=== PATIENT | female | born 1935 | race Caucasian/White ===

== ENCOUNTER → 2016-10-28 | Outpatient (CLI) | payer MEDICARE ==
[2016-10-28 12:11] LABS: Blood Urea Nitrogen 9 mg/dL (7-17); Non-African American GFR(MDRD) >60 (>60 ml/min/1.73 sqM)
== END | disposition home or self-care (01) ==
LOC: LABWHC1 11:23
PROVIDERS: ATTEND Family Medicine
DX: M54.5 Low back pain (principal); M81.0 Age-related osteoporosis without current pathological fracture
CPT/HCPCS: 36415; 82565; 84520

== ENCOUNTER → 2016-10-30 | Outpatient (CLI) | payer MEDICARE ==
--- NOTE | 2016-10-31 13:08 | MR ---
EXAMINATION TYPE: MR lumbar spine wo/w con DATE OF EXAM: 10/30/2016 COMPARISON: NONE HISTORY: Trouble walking, pain CONTRAST: 16 mL intravenous MultiHance. TECHNIQUE: Multiplanar, multisequence images of the lumbar spine were acquired. FINDINGS: L5-S1: There is a grade 1 spondylolisthesis of L5 anteriorly on S1. Disc uncovering is present. No th ecal sac compression is evident. Postsurgical changes from laminectomy are evident. Pedicle screws ar e present causing susceptibility artifact. L4-L5: Minimal grade 1 spondylolisthesis may be present with disc uncovering. This has minimal anteri or thecal sac contact. No deformity is evident. No spinal canal stenosis is present. Neural foramen a ppear patent. Pedicle screws are present with some mild susceptibility artifact. L3-L4: Mild facet hypertrophy and ligamentum flavum laxity. This has posterior lateral thecal sac com pression on the right. No spinal canal stenosis or neural foraminal stenosis is present. No focal dis c herniation is evident. L2-L3: Mild disc bulging is anterior thecal sac contact. No spinal canal stenosis or neural foraminal stenosis is present. L1-L2: There is a compression deformity of L1 with severe loss of vertical vertebral body height. Mil d posterior wall displacement is evident with mild anterior thecal sac compression. This is estimated at approximately 0.3 mm at the superior central wall. No spinal canal stenosis is evident. No contac t with the terminal cord at this level. No AP spinal canal stenosis is present. Minimal disc bulge at L1-2 is present with anterior thecal sac contact. No stenosis is evident. T12-L1: No significant disc bulge or disc herniation. No spinal canal stenosis. No foraminal stenos is. No abnormal enhancement. Cortical renal cyst is present at the inferior pole left kidney IMPRESSION: 1. Old severe compression deformity L1 with mild posterior wall displacement causing mild anterior th ecal sac compression in the superior posterior central wall region. No stenosis or cord contact is ev ident. 2. Grade 1 spondylolisthesis of L4 anterior and L5 and L5 anteriorly on S1 with disc uncovering. No s tenosis is present. 3. Postsurgical changes lower lumbar spine
== END | disposition home or self-care (01) ==
LOC: RADMRIMAIN 14:24
PROVIDERS: ATTEND Physician Assistant
DX: M43.17 Spondylolisthesis, lumbosacral region (principal); M43.8X6 Other specified deforming dorsopathies, lumbar region; M81.0 Age-related osteoporosis without current pathological fracture; Z98.890 Other specified postprocedural states
CPT/HCPCS: 72158; A9577

== ENCOUNTER → 2016-11-05 | Outpatient (CLI) | payer MEDICARE ==
--- NOTE | 2016-11-09 07:23 | MM ---
Reason for exam: screening (asymptomatic). Last mammogram was performed 1 year ago. History: Patient is postmenopausal. Family history of premenopausal breast cancer in sister. Benign excisional biopsy of the left breast, February 03, 2001. Taking estrogen for 18 years 1 month beginning at age 49. Physical Findings: A clinical breast exam by your physician is recommended on an annual basis and results should be correlated with mammographic findings. MG 3D Screening Mammo W/Cad Bilateral CC and MLO view(s) were taken. Prior study comparison: November 04, 2015, bilateral MG 3d screening mammo w/cad. October 21, 2014, bilateral MG screening mammo w CAD. October 18, 2013, bilateral MG screening mammo w CAD. The breast tissue is almost entirely fat. Stable dominent oil cyst anterior left breast. No significant changes when compared with prior studies. ASSESSMENT: Negative, BI-RAD 1 RECOMMENDATION: Routine screening mammogram of both breasts in 1 year.
== END | disposition home or self-care (01) ==
LOC: RADMAMWWP 11:00
PROVIDERS: ATTEND Family Medicine
DX: Z12.31 Encounter for screening mammogram for malignant neoplasm of breast (principal)
CPT/HCPCS: 77063; G0202

== ENCOUNTER → 2017-04-22 | Outpatient (CLI) | payer MEDICARE ==
[~2017-04-22] MED LIST: SODIUM CHLORIDE 0.9% 500 ML in EMPTY BAG 1 BAG IV PRN; ZOLEDRONIC ACID 5 MG in SODIUM CHLORIDE 0.9% 100 ML IV ONE
== END | disposition home or self-care (01) ==
LOC: PROCWHC3 13:36
PROVIDERS: ATTEND Physician Assistant
DX: M81.0 Age-related osteoporosis without current pathological fracture (principal)
CPT/HCPCS: 96365

== ENCOUNTER 2017-06-17 09:25 | Inpatient (IN) | payer MEDICARE ==
[2017-06-17] MEDS ORDERED: MORPHINE SULFATE 4 MG/ML SYRINGE IV STA (09:50)
[2017-06-17] MEDS ORDERED: SODIUM CHLORIDE 0.9% 1,000 ML IV STA (09:50)
[2017-06-17] MEDS ORDERED: RX INFO: IV CONTRAST WAS GIVEN 1 EACH MISC MISCELLANE PRN (09:50)
[2017-06-17] MEDS ORDERED: ONDANSETRON 4 MG/2 ML VIAL IVP STA (09:50)
--- NOTE | 2017-06-17 10:00 | ED ---
Abdominal Pain HPI - General Chief Complaint: Abdominal Pain Stated Complaint: abdominal pain, vomiting Time Seen by Provider: 06/17/17 09:42 Source: patient, RN notes reviewed Mode of arrival: wheelchair Limitations: no limitations - History of Present Illness Initial Comments: This is an 81-year-old female presents emergency Department chief complaint abdominal pain. Patient states pain started at 2:30 this morning states is more of a sudden onset of pain. She's had extreme nausea and vomiting since then she states pain is mostly in her upper abdomen. Patient states that she's had prior abdominal surgeries which include aortic surgery. Patient denies fever, chills, dysuria. Patient has currently taken at [facility] and [facility] for dental procedure. Patient states this was on Tuesday. Patient states that she has not had a bowel movement 2 days but this is not on the usual. Patient denies any back or chest pain at this time. - Related Data Home Medications Medication Instructions Recorded Confirmed Fluticasone Nasal [place] [Flonase 1 spray EA NOSTRIL DAILY 06/17/17 06/17/17 Nasal [place]] Levothyroxine Sodium [Synthroid] 125 mcg PO DAILY 06/17/17 06/17/17 Lisinopril [Zestril] 10 mg PO DAILY 06/17/17 06/17/17 Lubiprostone [Amitiza] 8 mcg PO BID 06/17/17 06/17/17 Metoprolol Succinate [Toprol XL] 25 mg PO DAILY 06/17/17 06/17/17 Pantoprazole Sodium [Protonix] 40 mg PO DAILY 06/17/17 06/17/17 Allergies Allergy/AdvReac Type Severity Reaction Status Date / Time Penicillins Allergy Nausea & Verified 06/17/17 09:48 Vomiting & Diarrhea amoxicillin AdvReac Nausea & Verified 06/17/17 09:48 Vomiting & Diarrhea clavulanic acid AdvReac Nausea & Verified 06/17/17 09:48 [From Augmentin] Vomiting & Diarrhea Review of Systems ROS Statement: Those systems with pertinent positive or pertinent negative responses have been documented in the HPI. ROS Other: All systems not noted in ROS Statement are negative. Past Medical History Past Medical History: COPD, GERD/Reflux, Hyperlipidemia, Hypertension, Pneumonia , Thyroid Disorder Additional Past Medical History / Comment(s): IBS History of Any Multi-Drug Resistant Organisms: None Reported Additional Past Surgical History / Comment(s): Heart Surgery, back surgery Past Psychological History: No Psychological Hx Reported Smoking Status: Former smoker Past Alcohol Use History: Rare Past Drug Use History: None Reported General Exam Limitations: no limitations General appearance: alert, in no apparent distress Head exam: Present: atraumatic, normocephalic, normal inspection Eye exam: Present: normal appearance, PERRL, EOMI. Absent: scleral icterus, conjunctival injection, periorbital swelling Neck exam: Present: normal inspection, full ROM. Absent: tenderness, meningismus, lymphadenopathy Respiratory exam: Present: normal lung sounds bilaterally. Absent: respiratory distress, wheezes, rales, rhonchi, stridor Cardiovascular Exam: Present: regular rate, normal rhythm, normal heart sounds. Absent: systolic murmur, diastolic murmur, rubs, gallop, clicks GI/Abdominal exam: Present: soft, distended, tenderness, normal bowel sounds. Absent: guarding, rebound, rigid Back exam: Absent: CVA tenderness (R), CVA tenderness (L) Neurological exam: Present: alert, oriented X3, CN II-XII intact Skin exam: Present: warm, dry, intact, normal color. Absent: rash Course Vital Signs 06/17/17 06/17/17 06/17/17 09:27 10:13 10:29 Temperature 97.7 F 97.8 F Pulse Rate 74 70 67 Respiratory 16 16 16 Rate Blood Pressure 175/89 124/59 185/84 O2 Sat by Pulse 95 96 93 L Oximetry Medical Decision Making - Lab Data Result diagrams: 06/17/17 10:00 06/17/17 10:00 Lab Results 06/17/17 06/17/17 06/17/17 Range/Units 10:00 10:00 10:00 WBC 13.2 H (3.8-10.6) k/uL RBC 4.98 (3.80-5.40) m/uL Hgb 14.3 (11.4-16.0) gm/dL Hct 44.8 (34.0-46.0) % MCV 89.9 (80.0-100.0) fL MCH 28.8 (25.0-35.0) pg MCHC 32.0 (31.0-37.0) g/dL RDW 13.5 (11.5-15.5) % Plt Count 285 (150-450) k/uL Neutrophils % 74 % Lymphocytes % 19 % Monocytes % 5 % Eosinophils % 1 % Basophils % 1 % Neutrophils # 9.8 H (1.3-7.7) k/uL Lymphocytes # 2.5 (1.0-4.8) k/uL Monocytes # 0.6 (0-1.0) k/uL Eosinophils # 0.1 (0-0.7) k/uL Basophils # 0.1 (0-0.2) k/uL Sodium 141 (137-145) mmol/L Potassium 4.7 (3.5-5.1) mmol/L Chloride 101 (98-107) mmol/L Carbon Dioxide 27 (22-30) mmol/L Anion Gap 13 mmol/L BUN 12 (7-17) mg/dL Creatinine 0.60 (0.52-1.04) mg/dL Est GFR (MDRD) Af Amer >60 (>60 ml/min/1.73 sqM) Est GFR (MDRD) Non-Af >60 (>60 ml/min/1.73 sqM) Glucose 154 H (74-99) mg/dL Plasma Lactic Acid Ray 2.0 (0.7-2.0) mmol/L Calcium 9.7 (8.4-10.2) mg/dL Total Bilirubin 0.4 (0.2-1.3) mg/dL AST 29 (14-36) U/L ALT 27 (9-52) U/L Alkaline Phosphatase 80 (38-126) U/L Troponin I (0.000-0.034) ng/mL Total Protein 7.6 (6.3-8.2) g/dL Albumin 4.0 (3.5-5.0) g/dL Amylase 48 (30-110) U/L Lipase 67 (23-300) U/L 06/17/17 Range/Units 10:00 WBC (3.8-10.6) k/uL RBC (3.80-5.40) m/uL Hgb (11.4-16.0) gm/dL Hct (34.0-46.0) % MCV (80.0-100.0) fL MCH (25.0-35.0) pg MCHC (31.0-37.0) g/dL RDW (11.5-15.5) % Plt Count (150-450) k/uL Neutrophils % % Lymphocytes % % Monocytes % % Eosinophils % % Basophils % % Neutrophils # (1.3-7.7) k/uL Lymphocytes # (1.0-4.8) k/uL Monocytes # (0-1.0) k/uL Eosinophils # (0-0.7) k/uL Basophils # (0-0.2) k/uL Sodium (137-145) mmol/L Potassium (3.5-5.1) mmol/L Chloride (98-107) mmol/L Carbon Dioxide (22-30) mmol/L Anion Gap mmol/L BUN (7-17) mg/dL Creatinine (0.52-1.04) mg/dL Est GFR (MDRD) Af Amer (>60 ml/min/1.73 sqM) Est GFR (MDRD) Non-Af (>60 ml/min/1.73 sqM) Glucose (74-99) mg/dL Plasma Lactic Acid Ray (0.7-2.0) mmol/L Calcium (8.4-10.2) mg/dL Total Bilirubin (0.2-1.3) mg/dL AST (14-36) U/L ALT (9-52) U/L Alkaline Phosphatase (38-126) U/L Troponin I <0.012 (0.000-0.034) ng/mL Total Protein (6.3-8.2) g/dL Albumin (3.5-5.0) g/dL Amylase (30-110) U/L Lipase (23-300) U/L Disposition Clinical Impression: Small bowel obstruction Disposition: ADMITTED IP TO THIS HOSP Condition: Fair Referrals: Suresh Hart DO [Primary Care Provider] - 1-2 days
[2017-06-17] MEDS ORDERED: HYDROmorphone 0.5 MG/0.5 ML SYRINGE IVP STA (10:24)
[2017-06-17 10:27] LABS: Basophils # (A) 0.1 k/uL (0-0.2); Basophils % (A) 1 %; Eosinophils # (A) 0.1 k/uL (0-0.7); Eosinophils % (A) 1 %; HCT 44.8 % (34.0-46.0); HGB 14.3 gm/dL (11.4-16.0); Lymphocytes # (A) 2.5 k/uL (1.0-4.8); Lymphocytes % (A) 19 %; MCH 28.8 pg (25.0-35.0); MCV 89.9 fL (80.0-100.0); Mean Platelet Volume 7.5; Monocytes # (A) 0.6 k/uL (0-1.0); Monocytes % (A) 5 %; Neutrophils # (A) 9.8 k/uL (1.3-7.7); Neutrophils % (A) 74 %; Platelet Count 285 k/uL (150-450); RBC 4.98 m/uL (3.80-5.40); RDW 13.5 % (11.5-15.5); WBC 13.2 k/uL (3.8-10.6)
[2017-06-17 10:37] LABS: ALT 27 U/L (9-52); AST 29 U/L (14-36); Alkaline Phosphatase 80 U/L (38-126); Amylase 48 U/L (30-110); Anion Gap 13 mmol/L; Blood Urea Nitrogen 12 mg/dL (7-17); Calcium 9.7 mg/dL (8.4-10.2); Carbon Dioxide 27 mmol/L (22-30); Chloride 101 mmol/L (98-107); Glucose 154 mg/dL (74-99); Lipase 67 U/L (23-300); Potassium 4.7 mmol/L (3.5-5.1); Sodium 141 mmol/L (137-145); Total Bilirubin 0.4 mg/dL (0.2-1.3); Total Protein 7.6 g/dL (6.3-8.2)
--- NOTE | 2017-06-17 12:05 | CT ---
EXAMINATION TYPE: CT abdomen pelvis w con DATE OF EXAM: 06/17/2017 COMPARISON: 09/04/2012 INDICATION: Umbilical pain, nausea and vomiting DLP: 1126.7 mGycm, Automated exposure control for dose reduction was used. CONTRAST: 100 mL of Omnipaque 300. Study performed without Oral Contrast TECHNIQUE: Axial images were obtained from above the diaphragm to the pubic rami in the axial plane a t 5 mm thick sections. Reconstructed images are reviewed on the computer in the coronal plane. FINDINGS: Limited CT sections are obtained the lung bases. The lung bases are clear. Coronary artery calcific ations present. CT ABDOMEN: Liver: Normal, small amount fluid is adjacent to the liver. Spleen: Normal, small amount of fluid is adjacent to the spleen. Pancreas: Normal Adrenal glands: The adrenal glands are normal. Gallbladder: Normal Kidneys: No masses are evident. No hydronephrosis is present. There is a 3.0 cm cyst on the mid upp er pole left kidney measuring 11 Hounsfield units. Delayed images were obtained through the kidneys, which remain unremarkable. Aorta: Vascular calcification is within the aorta. Inferior vena cava: Normal. CT PELVIS: Free fluid is within the pelvis. Multiple fluid-filled small bowel loops are present. These appear somewhat prominent in the left uppe r quadrant. Fecal debris and air is through the colon. Distal small bowel loops appear decompressed. There may be a zone of transition in the left lower quadrant. Correlate for partial obstruction. Some increased mesenteric markings are present. This could be an internal hernia. Study is without oral c ontrast causing limitation. Previous anterior abdominal wall hernias containing loops of colon and sm all bowel have been repaired. Some soft tissue thickening in the midline of the mid pelvis may be pos tsurgical change. No underlying abscess is evident Appendix: Normal as visualized. Urinary bladder: Normal. Genitourinary structures: Uterus and ovaries are not identified. Osseous structures: No suspicious lytic or sclerotic lesions. Postsurgical changes are within the lum bar spine. IMPRESSIONS: 1. Dilated proximal small bowel loops. There appears to be a zone of transition within the mid left lower quadrant. Consider possible internal hernia. Report was called to the emergency room PA by Dr. Navas by telephone at the time of interpretation.
[2017-06-17] MEDS ORDERED: NALOXONE 0.4 MG/ML 1 ML VIAL IV PRN (12:08)
[2017-06-17] MEDS: SODIUM CHLORIDE 0.9% 1,000 ML IV SCH (12:29)
[2017-06-17 12:59] LABS: Appearance,Urine Clear (Clear); Bilirubin,Urine Negative (Negative); Blood,Urine Negative (Negative); Color,Urine Yellow; Glucose,Urine (UA) Negative (Negative); Ketones,Urine Negative (Negative); Leukocyte Esterase,Urine Negative (Negative); Nitrite,Urine Negative (Negative); PH, Urine 6.5 (5.0-8.0); Protein,Urine Negative (Negative); Specific Gravity,Urine 1.042 (1.001-1.035); Urobilinogen,Urine <2.0 mg/dL (<2.0)
[2017-06-17] MEDS: HYDROmorphone 0.5 MG/0.5 ML SYRINGE IVP PRN ×4 (13:56→22:35)
--- NOTE | 2017-06-17 17:22 | P.GSHP ---
History of Present Illness H&P Date: 06/17/17 81-year-old female presented to the emergency department complaining of abdominal pain that began early this morning. She states that approximately 6 hours after her abdominal pain began checked, she began to vomit. She states her vomit contained food and was very dark in color. She states that she has never had that feeling before. She states that she has had a previous abdominal surgery and some type of arterial repair in which a midline abdominal incision was made. On workup in the emergency department, a CT abdomen and pelvis was performed that did show a small bowel obstruction. She states that her last bowel movement was yesterday and she has had flatus today. An NG tube was placed in the emergency department that did have approximately 200 mL of output. - Review of Systems All systems: negative Past Medical History Past Medical History: COPD, GERD/Reflux, Hyperlipidemia, Hypertension, Pneumonia , Thyroid Disorder, Vascular Disorder Additional Past Medical History / Comment(s): IBS, diverticular dx, colon polyps , hashimotos, hypothyroid, sinus problems, osteoporosis-receives reclast yearly , numbness/tingling bilateral feet, tinnitis bilaterally, chronic low back pain- DDD, anemia yrs ago, PVD. History of Any Multi-Drug Resistant Organisms: None Reported Past Surgical History: Back Surgery, Hernia Repair, Hysterectomy Additional Past Surgical History / Comment(s): Recent dental procedure for gingivitis, aortobifem bypass, laminectomies x2, incisional hernia repair, EGDs , colonoscopies, D&C, L breast benign bx, bilateral caratid endartectomies, bilateral cataract removals with lens implants, pain clinic procedures for back pain. Past Anesthesia/Blood Transfusion Reactions: No Reported Reaction Smoking Status: Former smoker - Past Family History Father Family Medical History: No Reported History Additional Family Medical History / Comment(s): Father was healthy. Mother Family Medical History: No Reported History Additional Family Medical History / Comment(s): Mother was healthy Medications and Allergies Home Medications Medication Instructions Recorded Confirmed Type Fluticasone Nasal [place] [Flonase 1 spray EA NOSTRIL DAILY 06/17/17 06/17/17 History Nasal [place]] Levothyroxine Sodium [Synthroid] 125 mcg PO DAILY 06/17/17 06/17/17 History Lisinopril [Zestril] 10 mg PO DAILY 06/17/17 06/17/17 History Lubiprostone [Amitiza] 8 mcg PO BID 06/17/17 06/17/17 History Metoprolol Succinate [Toprol XL] 25 mg PO DAILY 06/17/17 06/17/17 History Pantoprazole Sodium [Protonix] 40 mg PO DAILY 06/17/17 06/17/17 History Allergies Allergy/AdvReac Type Severity Reaction Status Date / Time Penicillins Allergy Nausea & Verified 06/17/17 09:48 Vomiting & Diarrhea amoxicillin AdvReac Nausea & Verified 06/17/17 09:48 Vomiting & Diarrhea clavulanic acid AdvReac Nausea & Verified 06/17/17 09:48 [From Augmentin] Vomiting & Diarrhea Surgical - Exam Osteopathic Statement: *. No significant issues noted on an osteopathic structural exam other than those noted in the History and Physical/Consult. Vital Signs Temp Pulse Resp BP Pulse Ox 97.7 F 74 16 175/89 95 06/17/17 09:27 06/17/17 09:27 06/17/17 09:27 06/17/17 09:27 06/17/17 09:27 - General well nourished, no distress - Eyes PERRL, normal ocular movement - ENT normal mucosa, no hearing loss - Neck no masses, no bruits, trachea midline - Respiratory No difficulty with respirations - Abdomen Soft, nontender, mildly distended, no rebound, no guarding - Psychiatric oriented to time, oriented to person, oriented to place Results - Labs 06/17/17 10:00 06/17/17 10:00 Abnormal Lab Results - Last 24 Hours (Table) 06/17/17 06/17/17 06/17/17 Range/Units 10:00 10:00 12:35 WBC 13.2 H (3.8-10.6) k/uL Neutrophils # 9.8 H (1.3-7.7) k/uL Glucose 154 H (74-99) mg/dL Ur Specific [place] 1.042 H (1.001-1.035) Diabetes panel 06/17/17 Range/Units 10:00 Sodium 141 (137-145) mmol/L Potassium 4.7 (3.5-5.1) mmol/L Chloride 101 (98-107) mmol/L Carbon Dioxide 27 (22-30) mmol/L BUN 12 (7-17) mg/dL Creatinine 0.60 (0.52-1.04) mg/dL Glucose 154 H (74-99) mg/dL Calcium 9.7 (8.4-10.2) mg/dL AST 29 (14-36) U/L ALT 27 (9-52) U/L Alkaline Phosphatase 80 (38-126) U/L Total Protein 7.6 (6.3-8.2) g/dL Albumin 4.0 (3.5-5.0) g/dL Calcium panel 06/17/17 Range/Units 10:00 Calcium 9.7 (8.4-10.2) mg/dL Albumin 4.0 (3.5-5.0) g/dL Pituitary panel 06/17/17 Range/Units 10:00 Sodium 141 (137-145) mmol/L Potassium 4.7 (3.5-5.1) mmol/L Chloride 101 (98-107) mmol/L Carbon Dioxide 27 (22-30) mmol/L BUN 12 (7-17) mg/dL Creatinine 0.60 (0.52-1.04) mg/dL Glucose 154 H (74-99) mg/dL Calcium 9.7 (8.4-10.2) mg/dL Adrenal panel 06/17/17 Range/Units 10:00 Sodium 141 (137-145) mmol/L Potassium 4.7 (3.5-5.1) mmol/L Chloride 101 (98-107) mmol/L Carbon Dioxide 27 (22-30) mmol/L BUN 12 (7-17) mg/dL Creatinine 0.60 (0.52-1.04) mg/dL Glucose 154 H (74-99) mg/dL Calcium 9.7 (8.4-10.2) mg/dL Total Bilirubin 0.4 (0.2-1.3) mg/dL AST 29 (14-36) U/L ALT 27 (9-52) U/L Alkaline Phosphatase 80 (38-126) U/L Total Protein 7.6 (6.3-8.2) g/dL Albumin 4.0 (3.5-5.0) g/dL - Imaging CT scan - abdomen: report reviewed, image reviewed CT scan - pelvis: report reviewed, image reviewed (CT abdomen and pelvis was performed. Reviewed. There is dilation of the small bowel with concern of small bowel obstruction.) Assessment and Plan (1) Small bowel obstruction Current Visit: Yes Status: Acute Code(s): K56.609 - UNSP INTESTNL OBST, UNSP TO PARTIAL VERSUS COMPLETE OBST SNOMED Code(s): 595738030 Plan: 81-year-old female with small bowel obstruction #1 continue NG tube to low intermittent suction #2 keep patient nothing by mouth #3 we will obtain abdominal x-ray in a.m. #4 pain control #5 medical consult placed
[2017-06-17] MEDS: PANTOPRAZOLE 40 MG/10 ML VIAL IVP SCH (18:12)
[2017-06-17] MEDS: FLUTICASONE 50MCG/SPRAY NASAL 16GM EA NOSTRIL SCH (18:12)
--- NOTE | 2017-06-17 20:28 | CONS ---
CONSULTATION DATE OF SERVICE: 06/17/2017 REASON FOR CONSULTATION: Medical management. BRIEF HISTORY: This is an 81-year-old female patient who was admitted from the emergency department with a complaint of abdominal pain that started early in the morning about 6 hours before coming to the hospital. According to records, patient started vomiting and vomitus contained food and was very dark in color. The patient does have history of previous abdominal surgery with a midline abdominal incision. The patient was worked up in the emergency room with a CT of the abdomen and pelvis which showed a small bowel obstruction. The patient is admitted to the hospital for further treatment and evaluation. PAST MEDICAL HISTORY: 1. COPD. 2. GERD/reflux. 3. Hyperlipidemia. 4. Hypertension. 5. Hypothyroidism. 6. Irritable bowel syndrome. 7. History of diverticulosis. 8. Osteoporosis. 9. Chronic low back pain/DJD. 10.Anemia. 11.Peripheral vascular occlusive disease. PAST SURGICAL HISTORY: 1. Back surgery. 2. Hernia repair. 3. Hysterectomy. 4. Dental procedures. 5. Aortobifemoral bypass. 6. Laminectomies x2. 7. Incisional hernia repair. 8. EGD/colonoscopy. SOCIAL HISTORY: Patient has a long history of smoking but quit some time ago. FAMILY HISTORY: Negative for coronary artery disease, hypertension, hyperlipidemia. CURRENT MEDICATIONS: 1. Flonase nasal spray 1 spray daily. 2. Levothyroxine 125 mcg daily. 3. Zestril 10 mg p.o. daily. 4. Amitiza 8 mcg p.o. b.i.d. 5. Metoprolol 25 mg daily. 6. Protonix 40 mg p.o. daily. ALLERGIES: 1. PENICILLIN. 2. CLAVULANIC ACID FROM AUGMENTIN. REVIEW OF SYSTEMS: CONSTITUTIONAL: Patient denies unexplained weight loss. No fever or chills. HEENT: Denies vision or speech difficulties. RESPIRATORY: Patient denies any shortness of breath or wheezing. CARDIOVASCULAR: Patient denies any chest pain or any palpitations. ABDOMEN AND GI: As described above. GENITOURINARY: No dysuria. No hematuria. MUSCULOSKELETAL: Patient denies any joint swelling or redness or deformities. NEUROLOGICAL: Patient denies any dizziness, lightheadedness. No headaches. LYMPHATICS: Denies any cervical or axillary lymph nodes. HEMATOLOGICAL: Patient does have history of anemia. No bleeding or coagulation disorders. SKIN: No pigmentation. No rashes. Rest of 14-point review of systems is unremarkable. PHYSICAL EXAMINATION: GENERAL: Patient is awake, alert and oriented. She is in no acute distress. VITAL SIGNS ON ADMISSION: Temperature 97.7, pulse 94, respiration 16, blood pressure 175/89, oxygen saturation 95%. HEENT: Atraumatic, normocephalic. Pupils equal and reactive to light. Extraocular movements intact. Buccal mucosa is fair. NECK: Supple. No goiter, lymphadenopathy. JVD is negative. No carotid bruit heard. RESPIRATORY EXAM: Lungs are clear to auscultate. No rales, rhonchi or wheezes. CARDIOVASCULAR; Heart is regular rate and rhythm without any murmurs or gallop rhythm. ABDOMEN: Soft. Mild diffuse distention. No tenderness. No guarding. No rigidity. Bowel sounds are positive. EXTREMITIES: No edema, clubbing, cyanosis. NEUROLOGICAL EXAMINATION: Cranial nerves 2-12 grossly intact. No gross motor or sensory deficit. SKIN; is warm and intact. No rashes or pigmentation. PSYCHIATRIC EXAMINATION: Patient has fair affect and mood, fair judgment. LABS: CBC: White blood count 13.2, hemoglobin 14.3, hematocrit 44.8, platelet count of 285. Chemical profile: Sodium 141, potassium 4.7, chloride 101, bicarb 27, BUN 12, creatinine 0.6, glucose 154. CT of the abdomen showed dilatation of the small bowel with concern about small bowel obstruction. ASSESSMENT: 1. Small-bowel obstruction. 2. Uncontrolled hypertension. 3. Hyperglycemia; no history of diabetes. 4. History of hypothyroidism. 5. History of hypertension. 6. Gastroesophageal reflux disease. 7. Chronic obstructive pulmonary disease, not in exacerbation. PLAN: Follow with Surgery. Patient has an NG tube in to low intermittent suctioning. She is nothing by mouth. Plan is to continue with hydration, pain control per surgical recommendation. Will monitor Accu-Cheks and use sliding scale if needed. Monitor blood pressure closely. Restart home medications and make adjustment appropriately if blood pressure remains elevated. We wish to thank you for this kind consultation. We will be happy to follow the patient with you. MMODL / IJN: [id number] / MARINA
[2017-06-17] MEDS: HEPARIN SODIUM,PORCINE 5,000 UNIT/ML 1 ML VIAL SQ SCH (22:36)
[2017-06-18] MEDS: HYDROmorphone 0.5 MG/0.5 ML SYRINGE IVP PRN ×4 (02:16→22:11)
[2017-06-18] MEDS: SODIUM CHLORIDE 0.9% 1,000 ML IV SCH ×2 (02:17→14:05)
[2017-06-18] MEDS: ONDANSETRON 4 MG/2 ML VIAL IVP PRN (05:58)
[2017-06-18] MEDS: PANTOPRAZOLE 40 MG/10 ML VIAL IVP SCH (08:05)
[2017-06-18] MEDS: HEPARIN SODIUM,PORCINE 5,000 UNIT/ML 1 ML VIAL SQ SCH (08:05)
--- NOTE | 2017-06-18 09:04 | XR ---
EXAMINATION TYPE: XR abdomen acute w cxr , 4 VIEWS DATE OF EXAM ORDERED: 06/18/2017 HISTORY: SBO. COMPARISON: None. FINDINGS: Lung volumes are prominent. There is atelectasis or early infiltrate at the left lung base . Lungs otherwise clear. Pleural spaces are clear. The heart is mildly enlarged. Within the abdomen, the sidehole of the NG tube is at the GE junction and should likely be advanced. There is been a previous interpedicular fusion at L5-S1. There is contrast within the bladder from a previous CT scan from yesterday. The abdominal gas pattern is normal. There is no evidence of obstruction or free air. No unusual calc ifications are seen. IMPRESSION: 1. COPD. 2. LEFT BASILAR AIRSPACE DISEASE. 3. CARDIOMEGALY. 4. MALPOSITIONED NG TUBE. THIS SHOULD BE ADVANCED SLIGHTLY. 5. NO ACUTE INTRA-ABDOMINAL ABNORMALITY.
--- NOTE | 2017-06-18 10:03 | P.PN ---
Subjective Progress Note Date: 06/18/17 Patient seen and examined at bedside. She denies any nausea or vomiting. She states that her abdominal cramping pain has resolved and she feels some minor soreness today. She states that she has been having flatus over the night and into the morning. She states that it is foul-smelling. She has no additional complaints at this time. Objective - Vital Signs Vital signs: Vital Signs Temp 97.7 F 06/18/17 02:26 Pulse 84 06/18/17 07:00 Resp 16 06/18/17 07:00 BP 121/55 06/18/17 07:00 Pulse Ox 96 06/18/17 07:00 Intake & Output 06/17/17 06/18/17 06/18/17 18:59 06:59 18:59 Output Total 250 Balance -250 Weight 81.647 kg Output: Gastric Drainage 250 Other: # Voids 1 1 # Bowel Movements 0 - Constitutional General appearance: Present: cooperative, no acute distress - Neck Neck: Present: normal ROM - Respiratory Details: No difficulty with respiration - Gastrointestinal Gastrointestinal Comment(s): Soft, nontender, improved distention, no rebound, no guarding - Psychiatric Psychiatric: Present: A&O x's 3, appropriate affect - Labs CBC & Chem 7: 06/17/17 10:00 06/17/17 10:00 Labs: Abnormal Lab Results - Last 24 Hours (Table) 06/17/17 06/17/17 06/17/17 Range/Units 10:00 10:00 12:35 WBC 13.2 H (3.8-10.6) k/uL Neutrophils # 9.8 H (1.3-7.7) k/uL Glucose 154 H (74-99) mg/dL Ur Specific [place] 1.042 H (1.001-1.035) Assessment and Plan (1) Small bowel obstruction Current Visit: Yes Status: Acute Code(s): K56.609 - UNSP INTESTNL OBST, UNSP TO PARTIAL VERSUS COMPLETE OBST SNOMED Code(s): 131074930 Plan: 81-year-old female with small bowel obstruction, resolving #1 clamp NG tube #2 trial of clear liquid diet #3 abdominal x-ray reviewed, no evidence of bowel obstruction, no evidence of bowel distention #4 pain control #5 medical management appreciated
[2017-06-18] MEDS: FLUTICASONE 50MCG/SPRAY NASAL 16GM EA NOSTRIL SCH (10:10)
[2017-06-18] MEDS ORDERED: HYDROCORTISONE 1% CREAM 30 GM TUBE TOPICAL PRN (11:09)
[2017-06-18] MEDS ORDERED: hydrALAZINE HCL 20 MG/ML 1 ML VIAL IVP PRN (13:08)
[2017-06-18] MEDS: IPRATROPIUM 0.5 MG/2.5 ML NEBU INHALATION SCH ×2 (16:21→21:36)
[2017-06-18] MEDS: LEVOTHYROXINE IVP 100 MCG/5 ML VIAL IV SCH (16:40)
--- NOTE | 2017-06-18 23:53 | PN ---
PROGRESS NOTE DATE OF SERVICE: 06/18/2017 The patient is seen and examined at bedside. Denies any nausea or vomiting. Continues to have an NG tube. VITAL SIGNS: Temperature 97.7, pulse 84, respirations 16, blood pressure 121/76 with oxygen saturation of 96%. HEENT: Atraumatic, normocephalic. Pupils equal and reactive to light. Extraocular movements intact. Buccal mucosa fair. Neck is supple. No goiter or lymphadenopathy. JVD is negative. No carotid bruit heard. LUNGS: Clear to auscultate. No rales, rhonchi, wheezes. Heart is regular rate and rhythm without any murmurs or gallop rhythm. Abdomen is soft and nontender. Positive distention, but no guarding or rigidity. Bowel sounds are positive. PSYCHIATRIC: Patient is alert, oriented x3. No motor or sensory deficits. LABS: CBC: White blood count of 13.2, hemoglobin 13.3, hematocrit 34.8 and platelet count of 285. Chemical profile: Sodium 141, potassium 4.7, chloride 101, bicarb 27, BUN 12, creatinine 0.6, glucose of 154. ASSESSMENT: 1. Small-bowel obstruction with Surgery recommending clamping, but give a trial of clear liquids following abdominal series and pain control. 2. Uncontrolled hypertension, clinically improved. patient's antihypertensive medications are on hold. Will start on IV hydralazine to be used p.r.n. 3. Hyperglycemia. No history of diabetes. Acc--Cheks have been fair. 4. Hypothyroidism. The patient remain n.p.o. with nasogastric tube. Will start patient on IV levothyroxine with an adjusted. 5. Gastroesophageal reflux disease. 6. Chronic obstructive pulmonary disease not in any exacerbation. The patient is improving clinically. PLAN: Continue trial of clamping the NG tube and starting clear liquid. Again, I appreciate the kind consultation and I am happy to follow the patient with you if any further complications arise. MMODL / IJN: [id number] / MARINA
[2017-06-19] MEDS: HEPARIN SODIUM,PORCINE 5,000 UNIT/ML 1 ML VIAL SQ SCH ×3 (00:30→21:28)
[2017-06-19] MEDS: ONDANSETRON 4 MG/2 ML VIAL IVP PRN (03:20)
[2017-06-19] MEDS: HYDROmorphone 0.5 MG/0.5 ML SYRINGE IVP PRN (03:21)
[2017-06-19] MEDS: SODIUM CHLORIDE 0.9% 1,000 ML IV SCH ×2 (04:41→13:20)
[2017-06-19] MEDS: IPRATROPIUM 0.5 MG/2.5 ML NEBU INHALATION SCH ×3 (07:24→20:22)
[2017-06-19] MEDS ORDERED: MORPHINE SULFATE 4 MG/ML SYRINGE IVP PRN (07:54)
[2017-06-19] MEDS ORDERED: BISACODYL 10 MG SUPP RECTAL STA (07:55)
--- NOTE | 2017-06-19 08:06 | P.PN ---
Subjective Progress Note Date: 06/19/17 Patient seen and examined at bedside. Nasogastric tube was removed yesterday after trial of clears. She states that she has a different type of abdominal pain today that she describes as soreness. She states that this is less pain than previously. She continues to have flatus. She denies having a bowel movement. Objective - Vital Signs Vital signs: Vital Signs Temp 98.3 F 06/19/17 07:00 Pulse 102 H 06/19/17 07:00 Resp 20 06/19/17 07:00 BP 137/53 06/19/17 07:00 Pulse Ox 95 06/19/17 07:24 Intake & Output 06/18/17 06/19/17 06/19/17 18:59 06:59 18:59 Intake Total 600 Balance 600 Intake: Intake, IV Titration 600 Amount Sodium Chloride 0.9% 1, 600 000 ml @ 75 mls/hr IV . [id number] AJITH Rx#:[id number] Other: # Voids 4 2 - Constitutional General appearance: Present: cooperative - Respiratory Details: No difficulty with respiration - Gastrointestinal Gastrointestinal Comment(s): Soft, nontender, mildly distended, no rebound, no guarding - Psychiatric Psychiatric: Present: A&O x's 3 - Labs CBC & Chem 7: 06/17/17 10:00 06/17/17 10:00 Assessment and Plan (1) Small bowel obstruction Current Visit: Yes Status: Acute Code(s): K56.609 - UNSP INTESTNL OBST, UNSP TO PARTIAL VERSUS COMPLETE OBST SNOMED Code(s): 707143304 Plan: 81-year-old female with small bowel obstruction, resolving #1 continue clear liquid diet #2 abdominal x-ray from yesterday reviewed, stool throughout colon, we'll try suppository #3 Will attempt to refrain from narcotic pain medication secondary to constipation #4 medical management appreciated #5 increase activity
[2017-06-19] MEDS: LEVOTHYROXINE IVP 100 MCG/5 ML VIAL IV SCH (08:28)
[2017-06-19] MEDS: PANTOPRAZOLE 40 MG/10 ML VIAL IVP SCH (08:28)
[2017-06-19] MEDS: FLUTICASONE 50MCG/SPRAY NASAL 16GM EA NOSTRIL SCH (08:28)
[2017-06-19 09:14] LABS: Basophils % (A) 0 %; Eosinophils # (A) 0.1 k/uL (0-0.7); Eosinophils % (A) 1 %; HCT 36.2 % (34.0-46.0); Hypochromasia Slight; Lymphocytes # (A) 1.3 k/uL (1.0-4.8); Lymphocytes % (A) 17 %; MCH 27.9 pg (25.0-35.0); MCHC 29.9 g/dL (31.0-37.0); MCV 93.4 fL (80.0-100.0); Mean Platelet Volume 7.6; Monocytes # (A) 0.6 k/uL (0-1.0); Monocytes % (A) 8 %; Neutrophils # (A) 5.8 k/uL (1.3-7.7); Neutrophils % (A) 73 %; Platelet Count 199 k/uL (150-450); RBC 3.88 m/uL (3.80-5.40); RDW 13.6 % (11.5-15.5)
[2017-06-19 09:17] LABS: HGB 10.8 gm/dL (11.4-16.0)
[2017-06-19 09:41] LABS: Anion Gap 7 mmol/L; Blood Urea Nitrogen 8 mg/dL (7-17); Calcium 8.2 mg/dL (8.4-10.2); Carbon Dioxide 27 mmol/L (22-30); Chloride 104 mmol/L (98-107); Glucose 101 mg/dL (74-99); Potassium 4.3 mmol/L (3.5-5.1); Sodium 138 mmol/L (137-145)
[2017-06-19] MEDS ORDERED: KETOROLAC 30 MG/ML 1 ML VIAL IVP PRN (12:57)
[2017-06-19] MEDS ORDERED: MAGNESIUM CITRATE 296 ML BOTTLE PO ONE (12:58)
--- NOTE | 2017-06-19 22:37 | PN ---
PROGRESS NOTE DATE OF SERVICE: 06/19/2017. HISTORY: The patient is seen and examined at bedside. NG tube has been removed since yesterday. The patient has been given trial of clear liquids. The patient does claim that she did get some crampy abdominal pain when she eats. PHYSICAL EXAM: VITAL SIGNS: Temperature 98.4, pulse 102, respirations 20, blood pressure 137/63, O2 saturation 95%. GENERAL: The patient is in no acute distress. HEENT: Atraumatic, normocephalic. Pupils equal, round, reactive to light. NECK: Supple without lymphadenopathy. JVD is negative. No carotid bruit heard. LUNGS: Clear to auscultation. HEART: Regular rate and rhythm. No gallop rhythm. ABDOMEN: Soft and nontender. No guarding or rigidity. Bowel sounds positive. EXTREMITIES: No edema, clubbing, or cyanosis. NEUROLOGIC: Cranial nerves 2 through 12 grossly intact. No gross motor sensory deficit. LABS: CBC, white blood count of 13.2, hemoglobin 14.3, hematocrit 44.8, and platelet count of 285. Chemical profile, sodium 141, potassium 4.7, chloride 101, bicarb 25, BUN 12, creatinine 0.6, glucose is 154. ASSESSMENT: Small bowel obstruction. The patient remains on a clear liquid diet and plans to advance as tolerated. We will continue with IV fluids. Continue with supportive care. Continue all current medications. Plan is to keep advancing the diet to regular diet and discharge when stable. MMODL / IJN: [id number] /
[2017-06-20 06:42] VITALS: BP 142/67; PULSE 80; RESP 16; TEMP 97.8
[2017-06-20] MEDS: IPRATROPIUM 0.5 MG/2.5 ML NEBU INHALATION SCH ×2 (08:04→12:03)
[2017-06-20] MEDS: PANTOPRAZOLE 40 MG/10 ML VIAL IVP SCH (08:12)
[2017-06-20] MEDS: FLUTICASONE 50MCG/SPRAY NASAL 16GM EA NOSTRIL SCH (08:12)
[2017-06-20] MEDS: LEVOTHYROXINE IVP 100 MCG/5 ML VIAL IV SCH (08:12)
[2017-06-20] MEDS: HEPARIN SODIUM,PORCINE 5,000 UNIT/ML 1 ML VIAL SQ SCH (08:12)
[2017-06-20] MEDS: SODIUM CHLORIDE 0.9% 1,000 ML IV SCH (08:16)
[2017-06-20] MEDS ORDERED: BISACODYL 10 MG SUPP RECTAL STA (09:34)
--- NOTE | 2017-06-20 09:44 | P.PN ---
Subjective Progress Note Date: 06/20/17 81-year-old female seen and examined at bedside this morning patient states she had a small bowel movement this morning. Patient reports having left lower quadrant discomfort this morning describes it as a soreness. Reports no nausea vomiting. Reports urinating with no difficulty. Patient states that she could have another suppository she feels like she could empty her bowel. Initial presentation to the emergency room with a chief complaint of abdominal discomfort. Patient stated the discomfort caused the patient to vomit. Patient reportedly has had prior abdominal surgeries. Has a history of back surgery, hysterectomy, no hernia repair. Also has a history of irritable bowel with diverticulitis disease. In the emergency room CAT scan of the abdomen pelvis showed a small polyp obstruction. Nasogastric tube in the emergency room was placed with 200 ml obtained. Patient was started on IV fluid. when appropriate nasal gastric tube was removed after passing gas and having stool the diet was advanced. Patient states she has chronic constipation at home Objective - Vital Signs Vital signs: Vital Signs Temp 97.8 F 06/20/17 06:41 Pulse 80 06/20/17 06:41 Resp 16 06/20/17 06:41 BP 142/67 06/20/17 06:41 Pulse Ox 98 06/20/17 06:41 Intake & Output 06/19/17 06/20/17 06/20/17 18:59 06:59 18:59 Intake Total 960 Balance 960 Intake: Oral 960 Other: # Voids 4 2 1 # Bowel Movements 1 1 - Exam Physical exam 81-year-old female looking stated age resting in bed does not appear in any acute distress Lungs adequate air movement bilaterally Heart S1-S2 audible regular Abdomen soft reports slight tenderness with palpitation to the left lower quadrant. Bowel tones present. Tolerating diet no nausea no vomiting. Urinating no difficulty nondistended states had a small bowel movement this morning Extremities no edema noted to the lower extremities - Labs CBC & Chem 7: 06/19/17 08:23 06/19/17 08:23 Labs: Abnormal Lab Results - Last 24 Hours (Table) 06/19/17 Range/Units 08:23 Glucose 101 H (74-99) mg/dL Calcium 8.2 L (8.4-10.2) mg/dL Assessment and Plan Assessment: Impression Present on admission abdominal pain with nausea vomiting suspect due to small bowel obstruction CAT scan abdomen pelvis in the emergency room showed evidence of a small bowel obstruction. Obesity BMI 30 History of chronic constipation Plan Diet to be advanced if tolerate will discharge this afternoon Dulcolax suppository 1 now follow up on results Increase activity Regular diet Dictating progress note for Dr. Adames The above impression and plan of care have been discussed and directed by signing physician. Heather Telles nurse practitioner acting as scribe for signing physician.
--- NOTE | 2017-06-20 12:07 | P.DS ---
Providers Date of admission: 06/17/17 12:15 Expected date of discharge: 06/20/17 Attending physician: Luis Adames DO Consults: 06/17/17 12:15 Consult Physician Stat Consulting Provider: Kenroy Ellison Reason/Comments: medical Do you want consulting provider notified?: Yes Primary care physician: [facility] Course: 81-year-old female presented on the day of admission to the emergency room to be evaluated for chief complaint of developing abdominal pain. Patient stated it was associated with a nausea sensation did vomit. Patient was seen in the emergency room had a CAT scan of the abdomen pelvis it showed a small bowel obstruction. Nasogastric tube inserted in the emergency room with 200ml returned. Patient was kept nothing by mouth with IV fluid for hydration bowel stimulant program initiated. When appropriate the nasal gastric tube was removed patient was passing gas having a bowel movement and tolerating a diet. Patient was felt to be appropriate to be discharged home Impression Present on admission abdominal pain with nausea vomiting suspect due to small bowel obstruction CAT scan abdomen pelvis in the emergency room showed evidence of a small bowel obstruction. Obesity BMI 30 History of chronic constipation History of using home O2 2-4 L nasal cannula The above impression and plan of care have been discussed and directed by signing physician. Heather Telles nurse practitioner acting as scribe for signing physician. Patient Condition at Discharge: Fair Plan - Discharge Summary Discharge Rx Participant: No New Discharge Prescriptions: New Docusate [Colace] 100 mg PO BID #60 capsule No Action Pantoprazole Sodium [Protonix] 40 mg PO DAILY Metoprolol Succinate [Toprol XL] 25 mg PO DAILY Lisinopril [Zestril] 10 mg PO DAILY Levothyroxine Sodium [Synthroid] 125 mcg PO DAILY Lubiprostone [Amitiza] 8 mcg PO BID Fluticasone Nasal Adams [Flonase Nasal Adams] 1 spray EA NOSTRIL DAILY Penicillin V Potassium [Pen Vee K] 500 mg PO Q6HR HYDROcodone/APAP 5-325MG [Williamson 5-325] 1 tab PO Q6HR PRN PRN Reason: Pain Discharge Medication List Fluticasone Nasal Adams [Flonase Nasal Adams] 1 spray EA NOSTRIL DAILY 06/17/17 [History] HYDROcodone/APAP 5-325MG [Williamson 5-325] 1 tab PO Q6HR PRN 06/17/17 [History] Levothyroxine Sodium [Synthroid] 125 mcg PO DAILY 06/17/17 [History] Lisinopril [Zestril] 10 mg PO DAILY 06/17/17 [History] Lubiprostone [Amitiza] 8 mcg PO BID 06/17/17 [History] Metoprolol Succinate [Toprol XL] 25 mg PO DAILY 06/17/17 [History] Pantoprazole Sodium [Protonix] 40 mg PO DAILY 06/17/17 [History] Penicillin V Potassium [Pen Vee K] 500 mg PO Q6HR 06/17/17 [History] Docusate [Colace] 100 mg PO BID #60 capsule 06/20/17 [Rx] Follow up Appointment(s)/Referral(s): Suresh Hart DO [Primary Care Provider] - 1-2 days Patient Instructions/Handouts: Bowel Obstruction (DC) Discharge Disposition: HOME SELF-CARE
[2017-06-21] MEDS ORDERED: PANTOPRAZOLE 40 MG TABLET PO SCH (07:30)
== END 2017-06-20 13:29 | disposition home or self-care (01) | DRG 390 ==
LOC: EC 09:25 → 4MS4W 12:15
PROVIDERS: ADMIT Surgery; ATTEND Surgery
DX: K56.609 Unspecified intestinal obstruction, unspecified as to partial versus complete obstruction (principal); J44.9 Chronic obstructive pulmonary disease, unspecified; I73.9 Peripheral vascular disease, unspecified; E66.9 Obesity, unspecified; E78.5 Hyperlipidemia, unspecified; I10 Essential (primary) hypertension; K21.9 Gastro-esophageal reflux disease without esophagitis; K58.9 Irritable bowel syndrome, unspecified; M81.0 Age-related osteoporosis without current pathological fracture; G89.29 Other chronic pain; R73.9 Hyperglycemia, unspecified; E06.3 Autoimmune thyroiditis; H93.13 Tinnitus, bilateral; K57.90 Diverticulosis of intestine, part unspecified, without perforation or abscess without bleeding; K59.09 Other constipation; M51.36 Other intervertebral disc degeneration, lumbar region; Z68.30 Body mass index [BMI] 30.0-30.9, adult; Z90.710 Acquired absence of both cervix and uterus; Z86.010 Personal history of colon polyps; Z88.1 Allergy status to other antibiotic agents; Z88.0 Allergy status to penicillin; Z87.891 Personal history of nicotine dependence; Z79.899 Other long term (current) drug therapy
CPT/HCPCS: 36415; 74022; 74177; 80048; 80053; 81003; 82150; 83605; 83690; 84443; 84484; 85025; 93005; 94640; 94760; 96361; 96374; 96375; 96376; 99285

== ENCOUNTER → 2017-09-07 | Outpatient (CLI) | payer MEDICARE ==
--- NOTE | 2017-09-07 11:51 | XR ---
EXAMINATION TYPE: XR cervical spine comp DATE OF EXAM: 09/07/2017 TECHNIQUE: Frontal, lateral and oblique views of the cervical spine are obtained. HISTORY: M542,[id number] cervicalgia, radiculopathy bilateral shoulder pain and numbness, left greater th an right for 2 months with no known injury COMPARISON: None FINDINGS: The cervical spine is visualized in its entirety from C1 thru the top of T1 level, it is s atisfactory in alignment without evidence of acute fracture or dislocation. The pre-vertebral soft t issue appears within normal limits. The C1-C2 articulation is within normal limits on the open mouth view. The oblique images demonstrate at least mild neural foraminal narrowing at C3-C4, C4-C5, C5-C 6 and C6-C7 on the left and at C3-C4 and C5-C6 on the right. Multilevel moderate degenerative disc di sease is seen as intervertebral disc space narrowing, endplate sclerosis, uncovertebral hypertrophy, facet arthropathy and small anterior osteophytes.. IMPRESSION: 1. No evidence of acute fracture or malalignment of the cervical spine. 2. 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 Further evaluation with MR could be performed to better delineate the degree of neuroforaminal narr owing and evaluate for spinal canal stenosis and disc herniation.
== END | disposition home or self-care (01) ==
LOC: RADXRYALE 10:41
PROVIDERS: ATTEND Physician Assistant
DX: M48.02 Spinal stenosis, cervical region (principal); M99.71 Connective tissue and disc stenosis of intervertebral foramina of cervical region; M50.10 Cervical disc disorder with radiculopathy, unspecified cervical region; M47.22 Other spondylosis with radiculopathy, cervical region; M46.92 Unspecified inflammatory spondylopathy, cervical region
CPT/HCPCS: 72050

== ENCOUNTER → 2017-11-16 | Outpatient (CLI) | payer MEDICARE ==
--- NOTE | 2017-11-18 10:42 | MM ---
Reason for exam: screening (asymptomatic). Last mammogram was performed 1 year ago. History: Patient is postmenopausal. Family history of premenopausal breast cancer in sister. Benign excisional biopsy of the left breast, February 03, 2001. Taking estrogen for 18 years 1 month beginning at age 49. Physical Findings: A clinical breast exam by your physician is recommended on an annual basis and results should be correlated with mammographic findings. MG 3D Screening Mammo W/Cad Bilateral CC and MLO view(s) were taken. Prior study comparison: November 05, 2016, bilateral MG 3d screening mammo w/cad. November 04, 2015, bilateral MG 3d screening mammo w/cad. The breast tissue is almost entirely fat. There is chronic nodularity in the right breast. Benign oil cysts on the left. ASSESSMENT: Benign, BI-RAD 2 RECOMMENDATION: Routine screening mammogram of both breasts in 1 year.
== END | disposition home or self-care (01) ==
LOC: RADMAMWWP 10:54
PROVIDERS: ATTEND Family Medicine
DX: Z12.31 Encounter for screening mammogram for malignant neoplasm of breast (principal)
CPT/HCPCS: 77063; 77067

== ENCOUNTER → 2018-04-27 | Outpatient (CLI) | payer MEDICARE ==
[~2018-04-27] MED LIST changes: +SODIUM CHLORIDE 0.9% 500 ML 500 ML in EMPTY BAG 1 BAG IV PRN; -SODIUM CHLORIDE 0.9% 500 ML in EMPTY BAG 1 BAG IV PRN; +ZOLEDRONIC ACID 5 MG in SODIUM CHLORIDE 0.9% 100 ML IV NR; -ZOLEDRONIC ACID 5 MG in SODIUM CHLORIDE 0.9% 100 ML IV ONE
[2018-04-27 15:17] VITALS: BP 179/75; PULSE 55; RESP 22; TEMP 98
== END ==
LOC: PROCWHC3 14:54
PROVIDERS: ATTEND Physician Assistant
DX: M81.0 Age-related osteoporosis without current pathological fracture (principal)
CPT/HCPCS: 96365; J3489